=== PATIENT | male | born 1995 | race Caucasian/White ===

== ENCOUNTER 2017-03-09 20:38 | Emergency (ER) | payer OTHER ==
[~2017-03-09] VITALS: Ht 185.4 cm; Wt 79.5 kg
[2017-03-09 20:46] VITALS: TEMP 98.4
[2017-03-09] MEDS ORDERED: BUSPAR5 MG PO (20:50)
[2017-03-09] MEDS ORDERED: VISTARIL 2525 MG/CAP PO (20:51)
[2017-03-09] MEDS ORDERED: VYVANSE10 MG PO (21:31)
[2017-03-09] MEDS ORDERED: ADDERALL5 MG PO (21:32)
[2017-03-09 21:44] VITALS: BP 147/68; PULSE 81
== END 2017-03-09 21:44 | disposition home or self-care (01) ==
LOC: COL.ER 20:38
DX: F41.9 Anxiety disorder, unspecified (principal); F17.210 Nicotine dependence, cigarettes, uncomplicated

== ENCOUNTER 2018-01-03 20:54 | Emergency (ER) | payer OTHER ==
[~2018-01-03] VITALS: Ht 185.4 cm; Wt 75.0 kg
[~2018-01-03 20:54] MED LIST: ADDERALL5 MG PO; BUSPAR5 MG PO; VISTARIL 2525 MG/CAP PO; VYVANSE10 MG PO
[2018-01-03 21:01] VITALS: BP 141/92; PULSE 89; TEMP 98.8
[2018-01-03] MEDS ORDERED: VYVANSE40 MG PO (21:03)
[2018-01-03] MEDS ORDERED: ADDERALL15 MG PO (21:03)
== END 2018-01-03 23:32 | disposition home or self-care (01) ==
LOC: COL.ER 20:54
DX: S01.81XA Laceration without foreign body of other part of head, initial encounter (principal); W00.0XXA Fall on same level due to ice and snow, initial encounter; Y93.21 Activity, ice skating

== ENCOUNTER → 2018-01-08 | Emergency (ER) | payer OTHER ==
[~2018-01-08] MED LIST changes: +ADDERALL15 MG PO; +VYVANSE40 MG PO
[2018-01-08 14:39] VITALS: BP 112/70; PULSE 90; TEMP 99.1
== END ==
LOC: COL.ER 14:22
DX: S01.81XD Laceration without foreign body of other part of head, subsequent encounter (principal)